=== PATIENT | female | born 1955 | race American Indian/Alaskan Native ===

== ENCOUNTER 2017-05-01 08:07 | Day surgery (SDC) | payer OTHER ==
[2017-05-01] MEDS ORDERED: NACL 0.9% 1000 ML 1,000 ML IV SCH (11:00)
--- NOTE | 2017-05-01 12:27 | Anesthesia Consultation ---
Anesthesia Consult and Med Hx Date of service: 05/01/17 - Airway Anesthetic Teeth Evaluation: Poor ROM Head & Neck: Adequate Mental/Hyoid Distance: Adequate Mallampati Class: Class II Intubation Access Assessment: Probably Good - Pulmonary Exam CTA: Yes - Cardiac Exam Cardiac Exam: RRR - Pre-Operative Health Status ASA Pre-Surgery Classification: ASA2 Proposed Anesthetic Plan: MAC - Pulmonary Hx Smoking: Yes (2 YRS ONLY IN THE 70'S) Hx Sleep Apnea: No - Cardiovascular System Hx Hypertension: Yes (10+ YRS) Hx Heart Attack/AMI: No - Central Nervous System Hx Neuromuscular Disorder: Yes (OA: Knee and shoulder pain) Hx Seizures: No CVA: No - Other Systems Hx Cancer: No Hx Obesity: Yes - Additional Comments Anesthesia Medical History Comments: NAC
--- NOTE | 2017-05-01 12:27 | Anesthesia Day of Surgery ---
Anesthesia Day of Surgery - Day of Surgery Patient Examined: Yes Patient H&P Reviewed: Yes Patient is NPO: Yes
[2017-05-01] MEDS ORDERED: WATER FOR IRRIG STERILE ONE (12:30)
[2017-05-01] MEDS ORDERED: DIPRIVAN 10 MG/ML IV ONE ×2 (12:41)
--- NOTE | 2017-05-01 12:42 | History and Physical Report ---
History of Present Illness Date of examination: 05/01/17 Chief complaint: Colorectal cancer screening History of present illness: Patient is a 62-year-old female who is referred for colorectal cancer screening. Denies any additional complaints. Past History Past Medical History: hypertension, other (degenerative arthritis) Medications and Allergies Allergies Allergy/AdvReac Type Severity Reaction Status Date / Time No Known Allergies Allergy Unverified 12/16/13 12:42 Home Medications Medication Instructions Recorded Confirmed Last Taken Type Meloxicam [Meloxicam] 15 mg PO PRN PRN 05/01/17 05/01/17 04/29/17 09:00 History Telmisartan/Hydrochlorothiazid 1 tab PO DAILY 05/01/17 05/01/17 05/01/17 08:00 History [Micardis Hct 80-25 mg Tablet] Active Meds: Active Medications Sodium Chloride (Nacl 0.9% 1000 Ml) 1,000 mls @ 50 mls/hr IV DIRECT VANDANA Last Admin: 05/01/17 12:35 Dose: 400 mls Review of Systems All systems: negative Exam - Constitutional Vitals: Temp Pulse Resp BP Pulse Ox 98.3 F 75 16 141/79 05/01/17 08:42 05/01/17 08:42 05/01/17 08:42 05/01/17 08:42 General appearance: Present: no acute distress, well-nourished - EENT Eyes: Present: PERRL ENT: hearing intact, clear oral mucosa - Neck Neck: Present: supple, normal ROM - Respiratory Respiratory effort: normal Respiratory: bilateral: CTA - Cardiovascular Heart Sounds: Present: S1 & S2. Absent: rub, click - Extremities Extremities: pulses symmetrical, No edema Peripheral Pulses: within normal limits - Abdominal General gastrointestinal: Present: soft, non-tender, non-distended, normal bowel sounds Female genitourinary: Present: normal - Integumentary Integumentary: Present: clear, warm, dry - Musculoskeletal Musculoskeletal: gait normal, strength equal bilaterally - Psychiatric Psychiatric: appropriate mood/affect, intact judgment & insight - Neurologic Neurologic: CNII-XII intact, moves all extremities Assessment and Plan Colorectal cancer screening. Plan: Colonoscopy.
--- NOTE | 2017-05-01 13:14 | Operative Report ---
Operative Report Operative Report: Date of procedure: 05/01/2017 Procedure: Colonoscopy with polyp ablation and hot biopsy polypectomy Attending physician: Jake Tafoya MD Analog Design Engineer: Jake Tafoya MD Indication: Patient is a 62-year-old female who is referred for colorectal cancer screening. A colonoscopy is done to evaluate patient so that treatment may be directed based on the findings. Consent: Informed consent was obtained after advising the patient and family regarding nature of this procedure, its indications, potential benefits as well as possible complications including but not limited to bleeding perforation and adverse reaction to medication, infection as well as other cardiopulmonary complications. An informed written and verbal consent was then obtained after due opportunity was provided for questions and answers. Monitoring: Patient was monitored continuously with pulse oximetry and electrocardiographic recordings as well as blood pressure recordings. Vital signs remained stable throughout this procedure with no untoward events. Preoperative assessment: Patient was assessed immediately prior to this procedure for capacity to tolerate monitored anesthesia care and moderate sedation as well as general anesthesia. Patient's ASA classification is 2, Mallampati class is 2, Hyomental distance is 3. Instrument: [employer] videocolonoscope Medications: Propofol, given intravenously in divided doses. For details please refer to anesthesia records. Description of procedure: Patient was placed in the left lateral decubitus position after achieving sedation, a digital rectal examination was performed following which the colonoscope was introduced into the anal verge and advanced to the cecum which was identified by the cecal valve, the appendiceal orifice, as well as by the cecal strap and direct transillumination. The colonoscope was subsequently withdrawn with careful inspection of all mucosal surfaces. Patient tolerated this procedure well and was subsequently taken to the recovery room. The following findings were noted. Findings: Patient had a few scattered diverticula in the sigmoid and descending colon. In the cecum, patient had a sessile polyp measuring approximately 6 mm which was removed by hot biopsy polypectomy. There was an adjoining flat polyp measuring approximately 4 mm, which was ablated completely. Immediately behind the ileocecal valve, patient had a lipoma which measured approximately 4 x 5 cm. The rest of the ascending colon was normal. The transverse colon was normal. The descending colon was normal. The sigmoid colon was normal. In the rectum, patient had 2 diminutive flat polyps that were completely ablated. On the retroflex view at the anal verge, patient had internal hemorrhoids. Impression: Cecal polyp status post hot biopsy polypectomy. Cecal polyp and rectal polyps status post ablation. Ascending colon lipoma. Diverticular disease of the sigmoid and descending colon. Internal hemorrhoids. Plan: Follow pathology report High-fiber diet Repeat colonoscopy in 5 years if polyp is adenomatous.
--- NOTE | 2017-05-01 13:15 | Discharge Summary ---
Short Stay Discharge Plan Activity: advance as tolerated Weight Bearing Status: Weight Bear as Tolerated Diet: regular Forms: Post Sedation D/C Instructions
[2017-05-01 13:16] VITALS: BP 108/64
--- NOTE | 2017-05-01 14:57 | Post Anesthesia Evaluation ---
- Post Anesthesia Evaluation Patient Participated: Yes Airway Patent: Yes Stable Respiratory Function: Yes Nausea/Vomiting: No Temp > 96.8F: Yes Pain Manageable: Yes Adequeate Hydration: Yes Anesthesia Complications: No Block Receding Appropriately: Not Applicable Patient on Ventilator: No
== END 2017-05-01 08:08 | disposition home or self-care (01) ==
LOC: GIO 08:07
PROVIDERS: ATTEND Internal Medicine Gastroenterology
DX: Z12.11 Encounter for screening for malignant neoplasm of colon (principal); D12.0 Benign neoplasm of cecum; D17.79 Benign lipomatous neoplasm of other sites; K57.30 Diverticulosis of large intestine without perforation or abscess without bleeding; K64.8 Other hemorrhoids; I10 Essential (primary) hypertension; M17.9 Osteoarthritis of knee, unspecified; M19.019 Primary osteoarthritis, unspecified shoulder; E66.9 Obesity, unspecified; Z68.39 Body mass index [BMI] 39.0-39.9, adult; Z79.899 Other long term (current) drug therapy; Z87.891 Personal history of nicotine dependence
CPT/HCPCS: 45384; 45388; 88305; J2704; J7030

== ENCOUNTER 2017-06-06 12:43 | Outpatient (CLI) | payer OTHER ==
--- NOTE | 2017-06-06 15:50 | Mammography Report ---
BILATERAL MAMMOGRAM: FINDINGS: The breasts are almost entirely fat (<25% glandular). No mass, distortion, suspicious calcification, or skin change is seen. Biopsy marker in the right retroareolar region. No interval change compared to prior exam in December 2013. CAD was utilized. IMPRESSION: Negative mammogram. There is no mammographic evidence of malignancy. RECOMMENDATION: Follow-up per ACS guidelines. BI-RADS CATEGORY: 1 = Negative ACR BI-RADS MAMMOGRAPHIC CODES: 0 = Needs additional imaging evaluation; 1 = Negative; 2 = Benign; 3 = Probably benign; 4 = Suspicious; 5 = Malignant; 6 = Known biopsy-proven malignancy COMMENT: 1. Dense breast tissue, i.e., adenosis, fibrocystic changes, etc., may obscure an underlying neoplasm. 2. Approximately 10% of cancers are not detected with mammography. 3. A negative mammography report should not delay biopsy if a clinically suspicious mass is present. COMMENT: Patient follow-up letters are generated in [employer].
== END 2017-06-06 12:44 | disposition home or self-care (01) ==
LOC: MAMMO 12:43
PROVIDERS: ATTEND Internal Medicine
DX: Z12.31 Encounter for screening mammogram for malignant neoplasm of breast (principal); I10 Essential (primary) hypertension; Z87.891 Personal history of nicotine dependence
CPT/HCPCS: 77067; G0202

== ENCOUNTER 2019-07-01 09:57 | Outpatient (CLI) | payer MEDICARE, OTHER ==
--- NOTE | 2019-07-01 13:37 | Mammography Report ---
DIGITAL SCREENING MAMMOGRAM WITH CAD, 07/01/2019 INDICATION: Routine screening mammography. TECHNIQUE: Digital bilateral 2D mammography was obtained in the craniocaudal and mediolateral obliq ue projections. This examination was interpreted with the benefit of Computer-Aided Detection analysi s. COMPARISON: 06/06/2017 FINDINGS: Breast Density: The breasts are almost entirely fatty. There is no evidence of dominant mass, suspicious calcifications or architectural distortion in eithe r breast. A right retroareolar biopsy clip. IMPRESSION: No mammographic evidence of malignancy. Follow up recommendation: Routine yearly BI-RADS Category 2: Benign. A "normal" or negative report should not discourage follow up or biopsy of a clinically significant f inding. A written summary of these findings will be mailed to the patient. The patient will be entered into a mammography reporting system which will generate a reminder letter for the patient's next appointmen t at the appropriate interval. The [employer] recommends yearly mammograms starting at age 40 and continuing as l govind as a woman is in good health. Breast MRI is recommended for women with an approximate 20-25% or greater lifetime risk of breast cancer, including women with a strong family history of breast or ova keara cancer or who have been treated for Hodgkin's disease. Signer Name: Jer King MD Signed: 07/01/2019 1:33 PM Workstation Name: [id number]
== END 2019-07-01 09:58 | disposition home or self-care (01) ==
LOC: MAMMO 09:57
PROVIDERS: ATTEND Student in an Organized Health Care Education/Training Program
DX: Z12.31 Encounter for screening mammogram for malignant neoplasm of breast (principal); N64.89 Other specified disorders of breast
CPT/HCPCS: 77067